=== PATIENT | male | born 1995 | race Caucasian/White ===

== ENCOUNTER 2024-03-13 23:05 | Emergency (ER) | payer BC ==
[2024-03-14] MEDS: Alum Hydrox/Mag Hydrox/Simeth 30 ML, Lidocaine 2% 15 ML PO ONE (00:06)
[2024-03-14] MEDS: Pantoprazole 40 MG Vial IVPUSH ONE (00:13)
[2024-03-14] MEDS: Sodium Chloride 0.9% 10 ML Syringe FLUSH PRN (00:16)
[2024-03-14] MEDS: Sucralfate Suspension 1 GM/10 ML Cup PO ONE (01:06)
== END 2024-03-14 02:00 | disposition home or self-care (01) ==
LOC: JD.ED 23:05
DX: K29.00 Acute gastritis without bleeding (principal); K21.9 Gastro-esophageal reflux disease without esophagitis; Z87.891 Personal history of nicotine dependence; Z79.899 Other long term (current) drug therapy; Z88.2 Allergy status to sulfonamides
CPT/HCPCS: 96374; 99283; A9270; C9113; J3490; 99284